=== PATIENT | female | born 1990 | race African-American/Black ===

== ENCOUNTER 2022-10-21 11:06 | Emergency (ER) | payer OTHER, SELFPAY ==
[2022-10-21 11:11] VITALS: BP 190/113; PULSE 102; RESP 18; TEMP 36.8; O2SAT 100
--- NOTE | 2022-10-21 11:23 | ECG_ITS ---
Measurements Intervals Severance Rate: 96 P: 53 WI: 212 QRS: -34 QRSD: 98 T: 59 QT: 472 QTc: 597 Interpretive Statements SINUS RHYTHM WITH FIRST DEGREE AV BLOCK LEFT AXIS DEVIATION POSSIBLE LEFT ATRIAL ENLARGEMENT PATTERN CONSISTENT WITH PULMONARY DISEASE BORDERLINE ST-T WAVE ABNORMALITY- DIFFUSE LEADS PROLONGED QT INTERVAL ABNORMAL ECG NO PREVIOUS ECG AVAILABLE FOR COMPARISON Electronically Signed On 10-21-2022 12:18:22 CDT by Sharan Vasques D.O.
--- NOTE | 2022-10-21 11:24 | PC.NURSE ---
pt comes to ED today for high blood pressure. pt states she was sent from the [facility]. pt states she was diagnosed with high blood pressure back in 2016 when she had her daughter. pt states she is not currently on any medication for high blood pressure but is probably suppose to be on some. pt c/o left sided facial tingling x1 week. pt denies any headache. she states she has had some blurred vision but says she is suppose to be wearing glasses and doesn't. blurred vision for the past year.
[2022-10-21 11:38] LABS: Basophils Absolute Auto 0.1 K/mm3 (0.0-0.1); Basophils Percent Auto 0.5 % (0.2-1.2); Eosinophils Absolute Auto 0.2 K/mm3 (0-0.3); Eosinophils Percent Auto 1.6 % (0-4.4); Hematocrit 39.5 % (37.0-47.0); Hemoglobin 12.5 g/dL (12.0-15.0); Immature Granulocyte Absolute 0.02 K/mm3 (0.00-0.031); Immature Granulocyte Percent A 0.2 % (0-0.5); Lymphocytes Absolute Auto 4.99 K/mm3 (0.9-3.2); Lymphocytes Percent Auto 45.4 % (18.3-44.2); Mean Corpuscular HGB Conc 31.6 g/dl (32-36); Mean Corpuscular Hemoglobin 29.3 pg (26-34); Mean Corpuscular Volume 92.5 fl (80-100); Mean Platelet Volume 10.8 fl (7.4-10.4); Monocytes Absolute Auto 0.6 K/mm3 (0.1-0.6); Monocytes Percent Auto 5.5 % (2.6-8.5); Neutrophils Absolute Auto 5.1 K/mm3 (1.3-6.7); Neutrophils Percent Auto 46.8 % (45.5-73.1); Platelet Count Result 292 k/mm3 (150-375); Red Blood Count 4.27 M/mm3 (4.2-5.4); Red Cell Distribution Width 14.6 % (11.5-14.5)
[2022-10-21 11:46] LABS: Alanine Aminotransferase 34 U/L (6-35); Albumin Level 4.7 g/dL (3.5-5.1); Alkaline Phosphatase 71 U/L (38-126); Anion Gap 9 mmol/L (8-16); Aspartate Amino Transferase 32 U/L (14-36); Bilirubin,Total 0.5 mg/dL (0.2-1.3); Blood Urea Nitrogen 8 mg/dL (7-17); Calcium 8.6 mg/dL (8.4-10.2); Carbon Dioxide 27 mmol/L (22-30); Chloride 106 mmol/L (98-107); Estimated CRCL calculation 190 ml/min; Estimated Glomerular Filt Rate > 60; Glucose 115 mg/dL (65-110); Potassium 3.5 mmol/L (3.4-5.0); Sodium 142 mmol/L (137-145)
[2022-10-21] MEDS: amLODIPine BESYLATE 5 MG TABLET PO (12:01)
[2022-10-21 12:29] LABS: Troponin I 0.019 ng/mL (0.000-0.034)
[2022-10-21 12:38] VITALS: BP 186/132; PULSE 87; RESP 16; O2SAT 100
[2022-10-21] MEDS: hydrALAZINE HCL 50 MG TABLET 100 MG PO (13:54)
[2022-10-21 13:55] VITALS: BP 179/116; PULSE 99; RESP 20; O2SAT 98
--- NOTE | 2022-10-21 14:03 | ED.RECABL ---
HPI - Recheck/Abnormal Lab/Rx General Chief Complaint: Recheck/Abnormal Lab/Rx Stated Complaint: HTN Time Seen by Provider: 10/21/22 11:25 History of Present Illness HPI narrative: This is a 31-year-old female with past history of hypertension, who presents to the emergency department with elevated blood pressure. [facility] and found to have an elevated blood pressure of 190/113. She notes some intermittent left facial paresthesias over the last several weeks that have not changed. She denies other weakness, chest pain or shortness of breath. Related Data Allergies Allergy/AdvReac Type Severity Reaction Status Date / Time No Known Allergies Allergy Verified 10/21/22 11:27 Review of Systems Review of Systems: CONSTITUTIONAL: Denies fever, chills, or sweats. CARDIOVASCULAR: Denies chest pain, palpitations, or edema. RESPIRATORY: Denies cough or dyspnea. GASTROINTESTINAL: Denies abdominal pain, nausea, vomiting, or diarrhea. GENITOURINARY: Denies dysuria or hematuria. SKIN: Denies rash or itching. MUSCULOSKELETAL: Denies back pain, joint pain, or myalgia. NEUROLOGIC: Denies headache, numbness, dizziness, or weakness. PSYCHIATRIC: Denies anxiety or depression. [facility] Past Medical History Medical History (Updated 10/21/22 @ 15:44 by Norm Agudelo MD) Hypertension Social History Social History (Updated 10/21/22 @ 14:05 by Norm Agudelo MD) Smoking status: Former smoker Alcohol intake: current Substance use: never Exam Narrative: GENERAL: Well-developed, well-nourished, and in no acute distress. HEAD: Normocephalic, atraumatic. EYES: PERRLA and EOMI. ENT: Nares clear, no rhinorrhea or epistaxis. Mucous membranes moist. Oropharynx without tonsillar hypertrophy exudate or other lesions. NECK: Supple. No adenopathy or masses. No carotid bruits or JVD CHEST: Clear to auscultation. No respiratory distress. No wheezes rales or rhonchi HEART: Regular rate and rhythm. No murmur heard. Normal peripheral pulses. ABDOMEN: Soft, nontender, nondistended, normal active bowel sounds. EXTREMITIES: Normal range of motion. No edema. SKIN: Warm, dry, no rash. NEURO: No focal deficits. Alert and oriented x3. Cranial nerves II through XII intact. Strength 5/5 in all extremities, sensation intact bilaterally PSYCH: Normal mood and affect. Course Course Emergency Course: 15:40 - After oral amlodipine and hydralazine, her blood pressure improved to 166/108. CBC demonstrates a mildly elevated white blood cell count of 11 but is otherwise unremarkable. Chemistries unremarkable. Troponin negative. EKG not concerning for ischemia. The patient tolerated medications well. Will discharge with amlodipine and recommendation for follow-up with primary care. Discussed return and emergency precautions including signs/symptoms of orthostatic hypotension and ACS. The patient voiced understanding and is comfortable with the plan. All questions answered to her satisfaction. Vital Signs Vital signs: Vital Signs Temperature 98.3 F 10/21/22 11:11 Pulse Rate 102 H 10/21/22 11:11 Respiratory Rate 18 10/21/22 11:11 Blood Pressure 190/113 H 10/21/22 11:11 Pulse Oximetry 100 10/21/22 11:11 Temperature 98.3 F 10/21/22 11:11 Pulse Rate 97 10/21/22 15:40 Respiratory Rate 20 10/21/22 15:40 Blood Pressure 166/108 H 10/21/22 15:40 Pulse Oximetry 99 10/21/22 15:40 MDM - Recheck/Abnormal Lab/Rx MDM Narrative Medical decision making narrative: Plan: Labs, blood pressure control, test, reassess Differential Diagnosis Differential diagnosis: Likely other (Elevated blood pressure, , metabolic abnormality, ACS, other) Lab Data 10/21/22 11:29 10/21/22 11:29 Labs: Lab Results 10/21/22 10/21/22 Range/Units 11:29 12:00 WBC 11.0 H (4.5-10.0) K/mm3 RBC 4.27 (4.2-5.4) M/mm3 Hgb 12.5 (12.0-15.
[2022-10-21 15:40] VITALS: BP 166/108; PULSE 97; RESP 20; O2SAT 99
== END 2022-10-21 15:59 | disposition home or self-care (01) ==
PROVIDERS: Emergency Provider Preventive Medicine Aerospace Medicine
DX: I10 Essential (primary) hypertension (principal); I44.0 Atrioventricular block, first degree
CPT/HCPCS: 36415; 80053; 84484; 85025; 93005; 99284; A9270

== ENCOUNTER 2023-11-06 08:33 | Emergency (ER) | payer OTHER, SELFPAY ==
[2023-11-06 08:46] VITALS: BP 164/116; PULSE 96; RESP 16; TEMP 36.8; O2SAT 100
--- NOTE | 2023-11-06 09:24 | ED.GENADULT ---
HPI - General Adult General Chief complaint: Unspecified Stated complaint: my jaw is stuck Time Seen by Provider: 11/06/23 08:54 Source: patient Mode of arrival: ambulatory Limitations: no limitations History of Present Illness HPI narrative: Patient is a 33-year-old female who presents to the ED with report of right-sided jaw pain and elevated blood pressure. Patient reports having pain along her right jaw, just in front of her right-sided ear for the last 5 days. States pain is worse with talking, opening her mouth, chewing. She has not tried anything for the pain. Denies inner ear or dental pain. She feels as though this is related to her blood pressure being elevated. She does have history of hypertension and has been off of her medication for several months. Has not followed up with her primary care doctor. Previously took amlodipine. Reports very occasional dizziness/lightheadedness, denies chest pain, shortness of breath, vision changes, difficulty breathing or swallowing, headaches, focal weakness or numbness. Related Data Allergies Allergy/AdvReac Type Severity Reaction Status Date / Time No Known Allergies Allergy Verified 10/21/22 11:27 Review of Systems Review of Systems: CONSTITUTIONAL: Denies fever, chills, or sweats. ENT: See HPI. CARDIOVASCULAR: Denies chest pain. RESPIRATORY: Denies cough or dyspnea. GASTROINTESTINAL: Denies abdominal pain, nausea, vomiting. NEUROLOGIC: See HPI All systems reviewed & are unremarkable except as noted in HPI and below PMFSH Past Medical History Medical History Hypertension Social History Social History Smoking status: Former smoker Alcohol intake: current Substance use: never Exam Narrative: GENERAL: Well appearing, well-nourished, non-toxic, in no acute distress. HEAD: Normocephalic, atraumatic. ENT: TTP along R TMJ space, reproducing pain. No significant swelling. No clicking or popping. No trismus or stridor. No obvious dental caries, tenderness along gumlines, no evidence of focal abscess intraorally. TMs clear bilaterally, no evidence of AOM/AOE. No mastoid swelling/erythema/tenderness. RESPIRATORY: Airway patent, respirations nonlabored. Clear to auscultation bilaterally, no rales, rhonchi, wheezing. CARDIOVASCULAR: Regular rate and rhythm MUSCULOSKELETAL: Moves all extremities. No gross deformities. No lower extremity swelling. SKIN: Warm, dry, normal color. NEURO: A&O X3. Speech clear. Cranial nerves II-XII grossly intact. Steady gait. No ataxic movements. No focal neurological deficits. PSYCHIATRIC: Appropriate mood and affect. Normal interaction. Course Vital Signs Vital signs: Vital Signs Temperature 98.2 F 11/06/23 08:46 Pulse Rate 96 11/06/23 08:46 Respiratory Rate 16 11/06/23 08:46 Blood Pressure 164/116 H 11/06/23 08:46 Pulse Oximetry 100 11/06/23 08:46 Oxygen Delivery Room Air 11/06/23 08:46 Temperature 98.2 F 11/06/23 08:46 Pulse Rate 84 11/06/23 11:29 Respiratory Rate 20 11/06/23 11:29 Blood Pressure 180/110 H 11/06/23 11:29 Pulse Oximetry 99 11/06/23 11:29 Oxygen Delivery Room Air 11/06/23 08:46 Medical Decision Making MDM Narrative Medical decision making narrative: Patient presented to ED with several day history of right-sided jaw pain, hypertension. Vital signs are stable upon arrival. Patient's blood pressure initially 164/116. She has previously been on amlodipine, but has been out of this for several months. Has not attempted to follow-up with her primary care doctor. Has previously been on 10 mg dose. Will give 5 mg here and re-evaluate. Exam consistent with TMJ, no evidence of dental disease. No evidence of dental abscess, airway compromise, stridor, trismus. No trauma or injury. Given Toradol and Flexeril here with improvement. Basic lab
--- NOTE | 2023-11-06 09:25 | ECG_ITS ---
SEE SCANNED COPY FOR CONFIRMED REPORT MTDD
[2023-11-06] MEDS: CYCLOBENZAPRINE HCL 5 MG TABLET PO (09:59)
[2023-11-06] MEDS: KETOROLAC (*BKC) 60 MG/2 ML VIAL IM (10:00)
[2023-11-06] MEDS: amLODIPine BESYLATE 5 MG TABLET PO (10:00)
[2023-11-06 10:17] VITALS: RESP 16; O2SAT 100
[2023-11-06 10:19] VITALS: PULSE 88
[2023-11-06 10:20] VITALS: BP 185/131; PULSE 87; RESP 17; O2SAT 98
[2023-11-06 10:24] LABS: Basophils Absolute Auto 0.1 K/mm3 (0.0-0.1); Basophils Percent Auto 0.6 % (0.2-1.2); Eosinophils Absolute Auto 0.1 K/mm3 (0-0.3); Eosinophils Percent Auto 1.2 % (0-4.4); Hematocrit 40.3 % (37.0-47.0); Hemoglobin 12.1 g/dL (12.0-15.0); Immature Granulocyte Absolute 0.03 K/mm3 (0.00-0.031); Immature Granulocyte Percent A 0.3 % (0-0.5); Lymphocytes Absolute Auto 3.75 K/mm3 (0.9-3.2); Lymphocytes Percent Auto 36.8 % (18.3-44.2); Mean Corpuscular Hemoglobin 27.1 pg (26-34); Mean Corpuscular Volume 90.4 fl (80-100); Mean Platelet Volume 10.9 fl (7.4-10.4); Monocytes Absolute Auto 0.5 K/mm3 (0.1-0.6); Monocytes Percent Auto 5.1 % (2.6-8.5); Neutrophils Absolute Auto 5.7 K/mm3 (1.3-6.7); Platelet Count Result 275 k/mm3 (150-375); Red Blood Count 4.46 M/mm3 (4.2-5.4); Red Cell Distribution Width 15.1 % (11.5-14.5); White Blood Count 10.2 K/mm3 (4.5-10.0)
[2023-11-06 10:37] LABS: Alanine Aminotransferase 20 U/L (6-35); Albumin Level 4.3 g/dL (3.5-5.1); Alkaline Phosphatase 67 U/L (38-126); Anion Gap 7 mmol/L (4-12); Aspartate Amino Transferase 23 U/L (14-36); Bilirubin,Total 0.5 mg/dL (0.2-1.3); Blood Urea Nitrogen 10 mg/dL (7-17); Calcium 8.9 mg/dL (8.4-10.2); Carbon Dioxide 24 mmol/L (22-30); Chloride 108 mmol/L (98-107); Estimated CRCL calculation 165 ml/min; Estimated Glomerular Filt Rate > 60; Glucose 100 mg/dL (65-110); Potassium 3.7 mmol/L (3.4-5.0); Sodium 139 mmol/L (137-145)
[2023-11-06 11:29] VITALS: BP 180/110; PULSE 84; RESP 20; O2SAT 99
== END 2023-11-06 11:32 | disposition home or self-care (01) ==
PROVIDERS: Emergency Provider Physician Assistant
DX: M26.609 Unspecified temporomandibular joint disorder, unspecified side (principal); I10 Essential (primary) hypertension
CPT/HCPCS: 36415; 80053; 84484; 85025; 93005; 96372; 99284; A9270; J1885